=== PATIENT | male | born 1975 | race African-American/Black ===

== ENCOUNTER → 2021-07-02 | Outpatient (CLI) | payer OTHER ==
[2020-12-25 11:00] VITALS: BP 155/84
[~2021-07-02] MED LIST: ASPI325T11 PO; CHOL10004 PO; OXYC1TAB15 PO
--- NOTE | 2021-07-02 14:53 | RAD ---
EXAM: Left tibia and fibula, 2 views; left ankle, 3 views. HISTORY: Fracture fixation. COMPARISON: 01/29/2021 FINDINGS: 2 views of the tibia and fibula and 3 views of the ankle are obtained. There has been parti al interval healing of a distal tibial metadiaphyseal fracture status post internal fixation. There i s a suspected healed distal fibular fracture status post internal fixation. The ankle mortise is inta ct. There is a tiny suspected avulsion fracture fragment along the anterior talus, likely chronic. Th ere is no osteochondral lesion. IMPRESSION: 1. Partial interval healing of a distal tibial metadiaphyseal fracture status post internal fixation. 2. Suspected healed distal fibular fracture status post internal fixation. 3. 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 Electronically signed by: Demetria Fortune MD (07/02/2021 2:51 PM) [id number]
== END ==
LOC: RAD 13:30
PROVIDERS: ATTEND Anesthesiology Pain Medicine
DX: Z02.71 Encounter for disability determination (principal); Z98.890 Other specified postprocedural states
CPT/HCPCS: 73600; 73590-50